=== PATIENT | female | born 1985 | race Caucasian/White ===

== ENCOUNTER 2017-02-08 01:54 | Emergency (ER) | payer OTHER ==
[2017-02-08] MEDS ORDERED: ERYTHROMYCIN 0.5% OPHTHALMIC OINTMENT 3.5 GM TUBE OS ONE (02:41)
--- NOTE | 2017-02-08 02:41 | PDOC ---
History of Present Illness - General History Source: Patient <Erwin Garrison - Last Filed: 02/08/17 02:44> - General History Source: Patient, Old Records Exam Limitations: No Limitations - History of Present Illness Initial Comments: 02/08/17 02:47 The patient is a 31 year old female, 5 months , with no significant past medical history , who presents to the emergency department with left eye redness and tearing. The patient endorses associated photophobia. The patient denies any recent sick contacts. <Conrado Cardenas - Last Filed: 02/08/17 02:51> - General Stated Complaint: EYE PROBLEM Time Seen by Provider: 02/08/17 02:36 Past History - Past Medical History Anemia: Yes (IRON PILLS IN THE PAST) Asthma: No Cancer: No Cardiac Disorders: No COPD: No Diabetes: No GI Disorders: No Disorders: No HTN: No Hypercholesterolemia: No Kidney Stones: No Suicide Attempt (Hx): No (DENIES) Seizures: No Thyroid Disease: No - Surgical History Abdominal Surgery: No Appendectomy: No Cardiac Surgery: No Cholecystectomy: No Lung Surgery: No Neurologic Surgery: No Orthopedic Surgery: No - Reproductive History PID: No - Immunization History Td Vaccination: Yes - Psycho/Social/Smoking Cessation Hx Anxiety: No Suicidal Ideation: No Smoking Status: Yes Smoking History: Never smoked Have you smoked in the past 12 months: No Number of Cigarettes Smoked Daily: 0 Hx Alcohol Use: No Drug/Substance Use Hx: Yes (PCP since 24 yo,1 bag 1-3 times a week,more and more recently) Substance Use Type: None Hx Substance Use Treatment: Yes (completed 28 days at [facility] a few yo) <Erwin Garrison - Last Filed: 02/08/17 02:44> <Conrado Cardenas - Last Filed: 02/08/17 02:51> - Past Medical History Allergies/Adverse Reactions: Allergies Allergy/AdvReac Type Severity Reaction Status Date / Time hydroxyzine HCl Allergy Severe Difficulty Verified 12/28/15 11:47 [From Vistaril] Breathing hydroxyzine pamoate Allergy Severe Difficulty Verified 12/28/15 11:47 [From Vistaril] Breathing Home Medications: Ambulatory Orders Quetiapine Fumarate [Seroquel -] 75 mg PO HS #90 tablet 01/22/16 Erythromycin 0.5% Eye Ointment [Erythromycin 0.5% Eye Ointment -] 1 applic OS TID #1 tube 02/08/17 Review of Systems - Review of Systems Able to Perform ROS?: Yes Comments:: 02/08/17 02:48 CONSTITUTIONAL: Absent: fever, no chills, no fatigue EYES: Present: Left eye redness, tearing. photophobia Absent: visual changes ENT: Absent: ear pain, no sore throat CARDIOVASCULAR: Absent: chest pain, no palpitations RESPIRATORY: Absent: cough, no SOB GI: Absent: abdominal pain, no nausea, no vomiting, no constipation, no diarrhea GENITOURINARY: Absent: dysuria, no frequency, no hematuria MUSCULOSKELETAL: Absent: back pain, no arthralgia, no myalgia SKIN: Absent: rash <Conrado Cardenas - Last Filed: 02/08/17 02:51> *Physical Exam - Physical Exam Comments: 02/08/17 02:48 GENERAL: Well-appearing, well-nourished. No apparent distress. HEENT: (+) Normocephalic, atraumatic. PERRL, EOM intact. Diffuse erythema of conjunctiva superior lid swelling, photophobia no discharge. CARDIOVASCULAR: Normal S1, S2. Regular rate and rhythm. PULMONARY: Clear to auscultation bilaterally. ABDOMEN: Soft, non-distended, non-tender. EXTREMITIES: Normal ROM in all four extremities. No gross deformities. SKIN: Warm, dry. No rash NEUROLOGICAL: No focal neurological deficits. <Conrado Cardenas - Last Filed: 02/08/17 02:51> Medical Decision Making - Medical Decision Making 02/08/17 02:45 Dr. Garrison: The scribe's documentation has been prepared under my direction and personally reviewed by me in its entirery. I confirm that the note above accurately reflects all work, treatment, procedures, and medical decision making performed by me. <Erwin Garrison - Last Filed: 02/08/17 02:44> *DC/Admit/Observation/Transfer - Discharge Dispostion Admit: No <Erwin Garrison - Last Filed: 02/08/17 02:44> - Attestations Scribe Attestion: 02/08/17 02:48 Documentation prepared by Conrado Cardenas, acting as medical leader for Erwin Garrison DO. <Conrado Cardenas - Last Filed: 02/08/17 02:51> Diagnosis at time of Disposition: Conjunctivitis Qualifiers: Conjunctivitis type: acute Acute conjunctivitis type: unspecified Laterality: left Qualified Code(s): H10.32 - Unspecified acute conjunctivitis, left eye - Discharge Dispostion Disposition: HOME Condition at time of disposition: Stable - Prescriptions Prescriptions: Erythromycin 0.5% Eye Ointment [Erythromycin 0.5% Eye Ointment -] 1 applic OS TID #1 tube - Referrals Referrals: Malinda Cordova [Primary Care Provider] - - Patient Instructions Printed Discharge Instructions: DI for Conjunctivitis
[2017-02-08] MEDS ORDERED: ACETAMINOPHEN 325 MG TABLET (FP) PO ONE (02:43)
[2017-02-08] MEDS ORDERED: ACETAMINOPHEN 325 MG TABLET (FP) ONE (03:04)
[2017-02-08] MEDS ORDERED: ERYTHROMYCIN 0.5% OPHTHALMIC OINTMENT 3.5 GM TUBE ONE (03:05)
[2017-02-08 03:10] VITALS: BMI 23.0
[2017-02-08 07:05] VITALS: BP 115/56; PULSE 76; TEMP 97.8
== END 2017-02-08 06:30 | disposition home or self-care (01) ==
LOC: JER 01:54
DX: O99.89 Other specified diseases and conditions complicating pregnancy, childbirth and the puerperium (principal); H10.32 Unspecified acute conjunctivitis, left eye; Z3A.21 21 weeks gestation of pregnancy
CPT/HCPCS: 99282-25

== ENCOUNTER 2017-05-31 00:30 | Inpatient (IN) | payer OTHER ==
[2017-05-31] MEDS: OXYTOCIN 20 UNITS in 0.9% NS 1,000 ML IV SCH (01:00)
[2017-05-31] MEDS ORDERED: BENZOCAINE 28 GM HEMORRHOIDAL OINTMENT TP PRN (01:17)
[2017-05-31] MEDS ORDERED: BENZOCAINE 20% 57 GM BOTTLE TP PRN (01:17)
[2017-05-31] MEDS ORDERED: METHYLERGONOVINE MALEATE 0.2 MG/1 ML AMP IM PRN (01:17)
[2017-05-31] MEDS ORDERED: BISACODYL 10 MG SUPP.RECT RC PRN (01:17)
[2017-05-31] MEDS ORDERED: WITCH HAZEL 50% (TUCKS) 40 PAD/JAR PAD TP PRN (01:17)
--- NOTE | 2017-05-31 01:20 | PN ---
Delivery - Delivery Vaginal Delivery: Other (Home delivery) Delivery, Single - Stages of Labor Placenta: Yes: Spontaneous (Pt cant with home delivery. Placenta delivered without complication)
[2017-05-31 02:24] LABS: BASOPHIL 0.5 % (0-2.0); EOSINOPHIL 0.6 % (0-4.5); MCH 32.8 pg (25.7-33.7); MCHC 33.7 g/dl (32.0-36.0); MEAN CELL VOLUME 97.3 fl (80-96); MEAN PLT VOLUME 10.4 fl (7.5-11.1); NEUTROPHILS 86.8 % (42.8-82.8); PLATELET COUNT 263 K/MM3 (134-434); RDW 13.7 % (11.6-15.6); WHITE BLOOD COUNT 19.7 K/mm3 (4.0-10.0)
[2017-05-31 02:38] LABS: INR 0.88 (0.82-1.09)
[2017-05-31 02:41] LABS: ACTIVATED PTT 26.3 SECONDS (26.9-34.4)
[2017-05-31 02:51] LABS: ALBUMIN 2.6 g/dl (3.4-5.0); ALK PHOS 158 U/L (45-117); ANION GAP 14 (8-16); BILIRUBIN,TOTAL 0.2 mg/dL (0.2-1.0); CALCIUM 8.2 mg/dL (8.5-10.1); CO2 20 mmol/L (21-32); CREATININE 0.7 mg/dL (0.55-1.02); GLUCOSE,RANDOM 122 mg/dL (74-106); SGOT/AST 12 U/L (15-37); SGPT/ALT 10 U/L (12-78); TOT PROT 6.2 g/dl (6.4-8.2)
[2017-05-31 03:06] VITALS: BMI 23.8
[2017-05-31 03:34] LABS: HIV 1 & 2 AB NEGATIVE; HIV 1 AGp24 NEGATIVE
[2017-05-31] MEDS: IBUPROFEN 600 MG TABLET (FP) PO PRN ×2 (03:59→20:15)
[2017-06-01 05:22] VITALS: TEMP 98
[2017-06-01] MEDS: IBUPROFEN 600 MG TABLET (FP) PO PRN ×2 (08:20→16:36)
[2017-06-01] MEDS: ACETAMINOPHEN 325 MG TABLET (FP) PO PRN ×2 (08:21→16:37)
[2017-06-01 08:52] VITALS: BP 122/67; PULSE 65
[2017-06-01 08:59] LABS: BASOPHIL 1.2 % (0-2.0); EOSINOPHIL 1.8 % (0-4.5); MCH 32.6 pg (25.7-33.7); MCHC 33.4 g/dl (32.0-36.0); MEAN CELL VOLUME 97.9 fl (80-96); NEUTROPHILS 69.7 % (42.8-82.8); PLATELET COUNT 240 K/MM3 (134-434); RDW 13.9 % (11.6-15.6); WHITE BLOOD COUNT 12.8 K/mm3 (4.0-10.0)
[2017-06-01] MEDS: OXYTOCIN 20 UNITS in 0.9% NS 1,000 ML IV SCH (09:54)
[2017-06-01] MEDS ORDERED: SENNOSIDES/DOCUSATE COMBO (SENNA PLUS) TABLET (UD) PO PRN (22:00)
== END 2017-06-01 16:40 | disposition home or self-care (01) | DRG 560 ==
LOC: JLDR 00:30 → J3W 04:39
PROVIDERS: ADMIT Obstetrics & Gynecology; ATTEND Obstetrics & Gynecology
PROC: 10E0XZZ Delivery of Products of Conception, External Approach (ICD-10-PCS; principal; 2017-05-31)
DX: Z39.0 Encounter for care and examination of mother immediately after delivery (principal)
CPT/HCPCS: 36415; 59409; 80053; 85025; 85610; 85730; 86593; 86762; 86850; 86900; 86901; 87340; 87389

== ENCOUNTER 2018-06-13 12:17 | Emergency (ER) | payer OTHER ==
[2018-06-13 12:21] VITALS: BMI 25.4
--- NOTE | 2018-06-13 13:14 | PDOC ---
History of Present Illness - General Chief Complaint: Blood Sugar Problem Stated Complaint: BLOOD SUGAR PROBLEM/22 WKS Time Seen by Provider: 06/13/18 13:13 History Source: Patient Exam Limitations: No Limitations - History of Present Illness Initial Comments: 06/13/18 15:14 Ms Palomares is a 32 year old female(22 weeks ) with a significant past medical history of asthma and gestational diabetes who presents to the emergency department with chest cold sx x 3-4 days, a/w hyperglycemia today. The patient reports that she woke up this morning feeling unwell. She states that she recently got a cold and has been taking over the counter Robitussin without relief.. She reports an associated worsened cough with productive yellow phlegm and nasal congestion with her cold. She states that she does have sick contact with her 1 year old child at home with similar URI sx. .+ dry mouth , lightheadedness, dizziness, nausea and vomiting and mild cramping. no VB or discharge. The patient states that she had an appointment today with her MFM/OB physician but wanted to come to the ED to be checked out. She denies any other symptoms or complaints. Denies tobacco or drug use. cristian with Dr. Natan SY and Dr. Calix [facility] 06/13/18 15:14 06/13/18 15:15 Past History - Past Medical History Allergies/Adverse Reactions: Allergies Allergy/AdvReac Type Severity Reaction Status Date / Time No Known Allergies Allergy Verified 06/13/18 12:21 Home Medications: Ambulatory Orders Prenat 115/Iron Fum/Folic/Dss [ 19 Tablet] 1 each PO DAILY 05/31/17 Albuterol Sulfate Inhaler - [Ventolin HFA Inhaler -] 1 - 2 inh PO Q4H PRN #1 inhaler 06/13/18 Doxylamine Succinate/Vit B6 [Lolita Casey 10-10 mg Tablet] 1 each PO DAILY PRN # 15 tablet. 06/13/18 Famotidine [Pepcid -] 20 mg PO DAILY #30 tablet 06/13/18 Anemia: Yes (IRON PILLS IN THE PAST) Asthma: No Cancer: No Cardiac Disorders: No COPD: No Diabetes: No GI Disorders: No Disorders: No HTN: No Hypercholesterolemia: No Kidney Stones: No Seizures: No Thyroid Disease: No - Surgical History Abdominal Surgery: No (LEEP) Appendectomy: No Cardiac Surgery: No Cholecystectomy: No Lung Surgery: No Neurologic Surgery: No Orthopedic Surgery: No - Reproductive History PID: No - Immunization History Td Vaccination: Yes - Suicide/Smoking/Psychosocial Hx Smoking Status: Yes Smoking History: Unknown if ever smoked Have you smoked in the past 12 months: Yes Number of Cigarettes Smoked Daily: 3 Information on smoking cessation initiated: No Hx Alcohol Use: No Drug/Substance Use Hx: No Substance Use Type: None Hx Substance Use Treatment: No Review of Systems - Review of Systems Able to Perform ROS?: Yes Comments:: 06/13/18 15:15 GENERAL/CONSTITUTIONAL: No fever or chills. No weakness. no sweats. HEAD, EYES, EARS, NOSE AND THROAT: (+) nasal congestion. No change in vision or hearing. No ear pain or discharge. No sore throat or mouth pain. No difficulty swallowing. CARDIOVASCULAR: No chest pain or palpitations, syncope or edema. RESPIRATORY: (+)productive cough. No SOB, wheezing, or hemoptysis. GASTROINTESTINAL (+)abdominal pain, nausea, vomiting. No diarrhea or constipation. No bloody stools. GENITOURINARY: No hematuria, dysuria, frequency, urgency or other changes. MUSCULOSKELETAL: No joint or muscle swelling or pain. No neck or back pain. SKIN: No rash or changes in skin color or lesions. NEUROLOGIC: No headache, vertigo, loss of consciousness, or change in strength/ sensation. No gait instability. HEMATOLOGIC/LYMPHATIC: No anemia, easy bruising/bleeding, or history of blood clots. ALLERGIC/IMMUNOLOGIC: No allergies All other systems reviewed and negative, or as documented in HPI. *Physical Exam - Vital Signs Last Vital Signs Temp Pulse Resp BP Pulse Ox 98.5 F 102 H 19 121/63 99 06/13/18 12:18 06/13/18 12:18 06/13/18 12:18 06/13/18 12:18 06/13/18 12:18 - Physical Exam Comments: 06/13/18 15:16 General: Well appearing, awake and alert, NAD. HEENT: NCAT, PERRL, EOMI, clear conjunctiva, anicteric, moist mucus membranes, clear oropharynx, no oral lesions.. Neck: neck supple, FROM Resp: CTAB, normal and even respirations, no respiratory distress CVS: RRR, no murmurs, 2+ peripheral pulses throughout, no peripheral edema Abdomen: soft, gravid, nontender. no CVAT. abdominal striae present. Back: nontender, normal inspection and ROM MSK: no edema, DIXON x4, ROM intact. No clubbing or cyanosis. normal bulk and tone. Neuro: alert, oriented appropriately Skin: warm and well perfused, cap refill <2 sec, normal color ED Treatment Course - LABORATORY CBC & Chemistry Diagram: 06/13/18 13:40 06/13/18 13:48 Medical Decision Making - Medical Decision Making 06/13/18 14:19 Vital signs reviewed, wnl. mild tachy, but NAD and nontoxic Prior notes reviewed, including admissions, discharges and consultations. laboratory results and imaging reviewed, basic labs and lytes wnl, normal LFTs and lipase. UA_neg for infection or ketones. CXR deferred, as most likely viral syndrome/URI and less likely pneumonia w/o focal sx or respiratory distress. bedside pelvic sono with live IUP visualized at approx 22 wks gestation by bpd, FHR documented in 150s. +FM. ED course: no acute events, remained stable and well appearing. Clinically improved after interventions, including pepcid, IVF and reglan for nausea and duoneb for cough. PO challenged, remains well w/o respiratory distress. abdomen exam benign. rx albuterol inhaler. PO pepcid and diclegis for n/v in , diet reviewed and continued supportive care/measures. Dispo: Pt to be discharged in stable condition. Patient made aware of impression and plan, return precautions discussed (including but not limited to worsening pain or symptoms), fevers, or signs of infection, chest pain, respiratory distress, inability to tolerate oral intake, dehydration, syncope, or neurologic changes). Follow up with PMD and/or specialist as recommended, follow up information provided, take medications as instructed for duration of time. continue with supportive care, avoid triggers and precipitants. All questions answered to patient's satisfaction and expressed understanding and comfort with this. f/u MFM for GDM, Dr. Gama in [place], and Dr. Calix Radha, supportive measures to L&D for monitoring given >20 wks 06/13/18 15:17 06/13/18 15:19 06/13/18 15:41 *DC/Admit/Observation/Transfer Diagnosis at time of Disposition: URI (upper respiratory infection), Abdominal pain affecting - Discharge Dispostion Disposition: TRANSFER ACUTE CARE/OTHER HOSP Condition at time of disposition: Improved Decision to Admit order: No - Prescriptions Prescriptions: Albuterol Sulfate Inhaler - [Ventolin HFA Inhaler -] 1 - 2 inh PO Q4H PRN #1 inhaler PRN Reason: Cough Doxylamine Succinate/Vit B6 [Diclegis Dr 10-10 mg Tablet] 1 each PO DAILY PRN # 15 tablet.dr PRN Reason: Nausea And/Or Vomiting Famotidine [Pepcid -] 20 mg PO DAILY #30 tablet - Referrals Referrals: Brayden Short MD [Primary Care Provider] - - Patient Instructions Printed Discharge Instructions: DI for Cough -- Adult, DI for Viral Upper Respiratory Infection -- Adult, DI for Abdominal Pain-Adult, DI for Abdominal Pain -- Early Additional Instructions: Her laboratory results a urine sample were all normal. you most likely have a viral illness, no antibiotics or x ray is needed and be treated with hydration, warm air humidifier, albuterol inhaler to be used every 4-6 hours as needed for cough. Proper hand hygiene and washing is encouraged. Please follow-up with your maternal- medicine and obstetric specialist for further management of your stay well-hydrated if worsening symptoms including respiratory distress, fevers , worsening abdominal pain, no bleeding or discharge, return sooner for evaluation. - Post Discharge Activity Forms/Work/School Notes: Back to Work
[2018-06-13 13:51] LABS: BASO % 0.4 % (0-2.0); EOS % 0.8 % (0-4.5); HEMATOCRIT 34.4 % (32.4-45.2); HEMOGLOBIN 11.5 GM/dL (10.7-15.3); LYMPH % 7.8 % (8-40); MCH 32.9 pg (25.7-33.7); MCHC 33.3 g/dl (32.0-36.0); MEAN CELL VOLUME 98.7 fl (80-96); MONO % 6.4 % (3.8-10.2); NEUT % 84.6 % (42.8-82.8); PLATELET COUNT 205 K/MM3 (134-434); RBC 3.49 M/mm3 (3.60-5.2); RDW 13.2 % (11.6-15.6); WHITE BLOOD COUNT 7.2 K/mm3 (4.0-10.0)
[2018-06-13 14:13] LABS: ALBUMIN 2.6 g/dl (3.4-5.0); ALK PHOS 85 U/L (45-117); ANION GAP 10 MMOL/L (8-16); BILIRUBIN,TOTAL 0.2 mg/dL (0.2-1); BLOOD UREA NITROGEN 7 mg/dL (7-18); CALCIUM 8.8 mg/dL (8.5-10.1); CHLORIDE 102 mmol/L (98-107); CO2 25 mmol/L (21-32); CREATININE 0.6 mg/dL (0.55-1.3); GLUCOSE,RANDOM 112 mg/dL (74-106); POTASSIUM 3.7 mmol/L (3.5-5.1); SGOT/AST 13 U/L (15-37); SGPT/ALT 8 U/L (13-61); SODIUM 136 mmol/L (136-145); TOT PROT 6.2 g/dl (6.4-8.2)
[2018-06-13] MEDS ORDERED: ALBUTEROL SO4 2.5/IPRATROPIUM 0.5 INH SOL 3 ML VIAL.NEB. NEB ONE ×2 (14:18→14:47)
[2018-06-13 14:21] LABS: URINE APPEARANCE CLEAR; URINE BILIRUBIN NEGATIVE (<2.0 mg/dL); URINE COLOR YELLOW; URINE GLUCOSE (UA) NEGATIVE (NEGATIVE); URINE KETONE NEGATIVE (NEGATIVE); URINE LEUK ESTERASE NEGATIVE (NEGATIVE); URINE NITRITE NEGATIVE (NEGATIVE); URINE PROTEIN NEGATIVE (NEGATIVE)
[2018-06-13] MEDS ORDERED: METOCLOPRAMIDE HCL INJECTION 10 MG/2 ML VIAL ONE (14:52)
[2018-06-13] MEDS ORDERED: METOCLOPRAMIDE HCL INJECTION 10 MG/2 ML VIAL IVPUSH ONE (15:17)
[2018-06-13 15:36] VITALS: BP 123/68; PULSE 89; TEMP 98.1
== END 2018-06-13 16:56 | disposition short-term general hospital (02) ==
LOC: JER 12:17
PROC: 3E0F7GC Introduction of Other Therapeutic Substance into Respiratory Tract, Via Natural or Artificial Opening (ICD-10-PCS; principal; 2018-06-13)
PROC: 3E033GC Introduction of Other Therapeutic Substance into Peripheral Vein, Percutaneous Approach (ICD-10-PCS; 2018-06-13)
DX: O26.892 Other specified pregnancy related conditions, second trimester (principal); Z3A.22 22 weeks gestation of pregnancy; R10.9 Unspecified abdominal pain; J06.9 Acute upper respiratory infection, unspecified
CPT/HCPCS: 36415; 80053; 81003; 82962; 83690; 85025; 87086; 94640; 96374; 99284-25

== ENCOUNTER 2020-10-03 22:52 | Emergency (ER) | payer OTHER ==
[2020-10-03 22:56] VITALS: BMI 23.9
[2020-10-03] MEDS ORDERED: AMOX TR/POT CLAV 875MG/125MG TABLETS (FP) PO ONE (23:20)
[2020-10-03] MEDS ORDERED: AMOX TR/POT CLAV 875MG/125MG TABLETS (FP) ONE (23:39)
[2020-10-04 01:44] VITALS: BP 131/73; PULSE 84; TEMP 98
== END 2020-10-04 04:30 | disposition home or self-care (01) ==
LOC: JER 22:52
DX: T07.XXXA Unspecified multiple injuries, initial encounter (principal)
CPT/HCPCS: 76815-TC; 99284-25

== ENCOUNTER 2020-10-26 13:51 | Emergency (ER) | payer OTHER ==
[2020-10-26 13:57] VITALS: BP 119/65; PULSE 108; TEMP 98.5; BMI 24.4
[2020-10-26] MEDS ORDERED: ACETAMINOPHEN 325 MG TABLET (FP) PO ONE (14:32)
[2020-10-26] MEDS ORDERED: ACETAMINOPHEN 500 MG TABLET (FP) ONE (14:35)
[2020-10-26] MEDS ORDERED: CEPHALEXIN MONOHYDRATE 500 MG CAPSULE (UD) PO ONE (14:49)
[2020-10-26] MEDS ORDERED: diphenhydrAMINE HCL 25 MG CAPSULE (FP) PO ONE ×2 (14:49→15:04)
[2020-10-26] MEDS ORDERED: MUPIROCIN 2% TOPICAL OINTMENT 22 GM TUBE TP ONE (14:50)
[2020-10-26] MEDS ORDERED: CEPHALEXIN MONOHYDRATE 500 MG CAPSULE (UD) ONE (15:05)
== END 2020-10-26 17:04 | disposition home or self-care (01) ==
LOC: JERFT 13:51
DX: R21 Rash and other nonspecific skin eruption (principal)
CPT/HCPCS: 99283-25

== ENCOUNTER 2021-01-05 16:15 | Inpatient (IN) | payer OTHER ==
[2021-01-05] MEDS ORDERED: AMPICILLIN - 2 GM in SODIUM CHLORIDE 100 ML IVPB ONE (16:45)
[2021-01-05] MEDS ORDERED: ELECTROLYTE-148 SOLN 1,000 ML IV SCH (16:45)
[2021-01-05] MEDS ORDERED: AMPICILLIN SODIUM 2 GM VIAL ONE (16:49)
[2021-01-05] MEDS ORDERED: OXYTOCIN 20 UNITS in 0.9% NS 20 UNIT/1,000 ML INFUS.BAG IV ONE (17:04)
[2021-01-05] MEDS: ACETAMINOPHEN 325 MG TABLET (FP) PO PRN (17:30)
[2021-01-05] MEDS: IBUPROFEN 600 MG TABLET (FP) PO PRN (17:30)
[2021-01-05] MEDS ORDERED: IBUPROFEN 600 MG TABLET (FP) PO ONE (17:33)
[2021-01-05 17:57] VITALS: BMI 24.7
[2021-01-05] MEDS ORDERED: oxyCODONE HCL 5 MG TABLET PO PRN (18:00)
[2021-01-05] MEDS ORDERED: OXYTOCIN 20 UNITS in 0.9% NS 20 UNIT/1,000 ML INFUS.BAG IV SCH (18:00)
[2021-01-05] MEDS ORDERED: BENZOCAINE 20% 57 GM BOTTLE TP PRN (18:00)
[2021-01-05] MEDS ORDERED: METHYLERGONOVINE MALEATE 0.2 MG/1 ML AMP IM PRN (18:00)
[2021-01-05] MEDS ORDERED: BENZOCAINE 28 GM HEMORRHOIDAL OINTMENT TP PRN (18:00)
[2021-01-05] MEDS ORDERED: BISACODYL 10 MG SUPP.RECT RC PRN (18:00)
[2021-01-05] MEDS ORDERED: WITCH HAZEL 50% (TUCKS) 40 PAD/JAR PAD TP PRN (18:00)
[2021-01-05 18:04] LABS: BASO % 0.4 % (0-2.0); EOS % 1.1 % (0-4.5); HEMATOCRIT 33.8 % (32.4-45.2); HEMOGLOBIN 11.4 GM/dL (10.7-15.3); LYMPH % 16.9 % (8-40); MCH 32.4 pg (25.7-33.7); MCHC 33.8 g/dl (32.0-36.0); MEAN CELL VOLUME 95.8 fl (80-96); MEAN PLT VOLUME 10.3 fl (7.5-11.1); MONO % 5.7 % (3.8-10.2); NEUT % 75.9 % (42.8-82.8); PLATELET COUNT 191 K/MM3 (134-434); RBC 3.53 M/mm3 (3.60-5.2); RDW 13.4 % (11.6-15.6); WHITE BLOOD COUNT 7.5 K/mm3 (4.0-10.0)
[2021-01-05 18:11] LABS: INR 0.92 (0.83-1.09); PROTHROMBIN TIME (PATIENT) 11.3 SEC (9.7-13.0)
[2021-01-05 18:15] LABS: CORD BASE EXCESS -2.1 mmol/L (0-2); CORD HCO3 26.7 mmHg (20-29); CORD PCO2 62.4 mmHg (30-78); CORD pH 7.25 (7.14-7.44)
[2021-01-05 18:16] LABS: CORD BASE EXCESS -3.8 mmol/L (0-2); CORD HCO3 21.9 mmHg (20-29); CORD PCO2 42.1 mmHg (30-78); CORD pH 7.334 (7.14-7.44)
[2021-01-05 18:25] LABS: CALCIUM 8.4 mg/dL (8.5-10.1)
[2021-01-05 18:26] LABS: BLOOD UREA NITROGEN 5.4 mg/dL (7-18)
[2021-01-05 18:29] LABS: CREATININE 0.7 mg/dL (0.55-1.3)
[2021-01-05 18:50] LABS: COCAINE, UR NEGATIVE ng/ml (CUTOFF=300); OPIATES, URI NEGATIVE ng/ml (CUTOFF=300); URINE AMPHETAMINES NEGATIVE ng/ml (CUTOFF=500); URINE BARBITURATES NEGATIVE ng/ml (CUTOFF=200); URINE BENZODIAZEPINES NEGATIVE ng/ml (CUTOFF=200)
[2021-01-05 18:51] LABS: METHADONE, UR NEGATIVE ng/ml (CUTOFF=300)
[2021-01-05 19:08] LABS: PHENCYCLIDINE,URINE POSITIVE ng/ml (CUTOFF=25)
[2021-01-06 08:36] LABS: BASO % 0.5 % (0-2.0); EOS % 1.3 % (0-4.5); HEMATOCRIT 35.4 % (32.4-45.2); HEMOGLOBIN 12.2 GM/dL (10.7-15.3); LYMPH % 16.2 % (8-40); MCH 32.9 pg (25.7-33.7); MCHC 34.5 g/dl (32.0-36.0); MEAN CELL VOLUME 95.3 fl (80-96); MEAN PLT VOLUME 9.9 fl (7.5-11.1); MONO % 5.8 % (3.8-10.2); NEUT % 76.2 % (42.8-82.8); PLATELET COUNT 197 K/MM3 (134-434); RBC 3.72 M/mm3 (3.60-5.2); RDW 13.4 % (11.6-15.6)
[2021-01-06] MEDS: PRENATAL VITAMINS W/ FOLIC ACID TABLET (FP) PO SCH (11:21)
[2021-01-06] MEDS: IBUPROFEN 600 MG TABLET (FP) PO PRN ×2 (11:21→20:38)
[2021-01-06] MEDS: ACETAMINOPHEN 325 MG TABLET (FP) PO PRN ×2 (11:22→20:38)
[2021-01-06] MEDS: FERROUS SO4 325 MG TABLET (FP) PO SCH ×2 (11:23→17:23)
[2021-01-06] MEDS ORDERED: NYSTATIN/TRIAMCINOLONE TOPICAL CREAM 15 GM TUBE TP PRN (13:21)
[2021-01-06] MEDS ORDERED: SENNOSIDES/DOCUSATE COMBO (SENNA PLUS) TABLET (UD) PO PRN (22:00)
[2021-01-07] MEDS: IBUPROFEN 600 MG TABLET (FP) PO PRN (05:49)
[2021-01-07] MEDS: ACETAMINOPHEN 325 MG TABLET (FP) PO PRN (05:50)
[2021-01-07] MEDS: FERROUS SO4 325 MG TABLET (FP) PO SCH (08:49)
[2021-01-07] MEDS: PRENATAL VITAMINS W/ FOLIC ACID TABLET (FP) PO SCH (11:21)
[2021-01-07 13:41] VITALS: BP 96/59; PULSE 76; TEMP 97.6
== END 2021-01-07 12:50 | disposition home or self-care (01) | DRG 560 ==
LOC: JLDR 16:15 → J3W 19:59
PROVIDERS: ADMIT Obstetrics & Gynecology; ATTEND Obstetrics & Gynecology
PROC: 10E0XZZ Delivery of Products of Conception, External Approach (ICD-10-PCS; principal; 2021-01-05)
DX: O24.414 Gestational diabetes mellitus in pregnancy, insulin controlled (principal); O99.324 Drug use complicating childbirth; F16.10 Hallucinogen abuse, uncomplicated; Z3A.37 37 weeks gestation of pregnancy; Z37.0 Single live birth; Z86.2 Personal history of diseases of the blood and blood-forming organs and certain disorders involving the immune mechanism; Z86.59 Personal history of other mental and behavioral disorders
CPT/HCPCS: 36415; 36600; 59409; 80048; 80307; 82803; 82962; 85025; 85610; 85730; 86780; 86850; 86900; 86901; C9803; U0003; U0005

== ENCOUNTER 2023-06-28 15:36 | Emergency (ER) | payer OTHER ==
[2023-06-28 15:50] VITALS: BP 132/63; PULSE 89; RESP 18; TEMP 98.2; BMI 18.7
== END 2023-06-28 17:46 | disposition home or self-care (01) ==
LOC: JERFT 15:36
DX: L29.9 Pruritus, unspecified (principal); L03.116 Cellulitis of left lower limb
CPT/HCPCS: 99283-25

== ENCOUNTER 2023-10-24 05:35 | Emergency (ER) | payer SELFPAY ==
[2023-10-24 05:50] VITALS: BP 103/71; PULSE 90; RESP 20; TEMP 97.7; BMI 18.7
[2023-10-24] MEDS ORDERED: BACITRACIN ZINC 15 GM TUBE TOPICAL OINTMENT ONE (08:02)
[2023-10-24] MEDS: BACITRACIN ZINC 15 GM TUBE TOPICAL OINTMENT TP ONE (08:29)
[2023-10-24] MEDS ORDERED: BACITRACIN/POLYMYXIN B SULFATE 15 GM TUBE TP SCH (10:00)
== END 2023-10-24 08:29 | disposition home or self-care (01) ==
LOC: JER 05:35
DX: S60.511A Abrasion of right hand, initial encounter (principal); S60.512A Abrasion of left hand, initial encounter; W55.03XA Scratched by cat, initial encounter
CPT/HCPCS: 99283-25